=== PATIENT | female | born 1950 | race African-American/Black ===

== ENCOUNTER 2021-06-26 08:00 | Inpatient (IN) ==
[2021-06-26] MEDS ORDERED: GLUCAGON 1 MG VIAL IM PRN (09:26)
[2021-06-26] MEDS ORDERED: DEXTROSE 10% 250 ML BAG IV PRN (11:23)
[2021-06-26] MEDS ORDERED: NITROGLYCERIN SL 0.4 MG TABLET SL PRN (13:25)
[2021-06-26] MEDS ORDERED: CLORAZEPATE 3.75 MG TABLET PO PRN (13:25)
[2021-06-26] MEDS ORDERED: hydrALAZINE 20 MG/1 ML VIAL IV PRN (13:27)
[2021-06-26] MEDS ORDERED: MORPHINE 4 MG/1 ML VIAL IV PRN (14:39)
[2021-06-26] MEDS ORDERED: SODIUM CHLORIDE 0.9% 1,000 ML IV SCH (15:00)
[2021-06-26] MEDS ORDERED: INFLUENZA VIRUS VACCINE 0.5 ML SYRINGE IM ONE (15:51)
[2021-06-26 15:52] LABS: Basophils # 0.1 10*3/uL (0.0-0.2); Basophils % 0.4 % (0.0-0.8); Eosinophils # 0.1 10*3/uL (0.0-0.87); Eosinophils % 0.5 % (0.00-10.9); Hematocrit 40.1 VOL% (35.7-47.0); Hemoglobin 12.5 GM/DL (12.0-16.0); Immature Granulocytes % 0.4 %; Immature Granulocytes Absolute 0.05 #; Lymphocytes # 4.7 10*3/uL (1.4-4.0); Lymphocytes % 42.1 % (21.3-54.2); Mean Corpuscular HGB Conc 31.2 GM/DL (32-36); Mean Corpuscular Volume 84.1 FL (87-102); Mean Platelet Volume 12.1 FL (9.6-12.0); Neutrophils % 52.6 % (38.7-73.9); Platelet Count 220 T/CUMM (130-400); Red Blood Count 4.77 MC/CUMM (3.8-5.5); Red Cell Distribution Width 13.6 % (9.3-17.3); White Blood Count 11.1 T/CUMM (4-12)
[2021-06-26] MEDS ORDERED: LACTATED RINGERS 1,000 ML IV SCH (16:00)
[2021-06-26 16:11] LABS: Alanine Aminotransferase 21 U/L (13-56); Albumin 3.4 G/DL (3.4-5.0); Alkaline Phosphatase 68 U/L (45-117); Aspartate Amino Transferase 14 U/L (0-37); Bilirubin,Total < 0.39 MG/DL (0.20-1.00); Blood Urea Nitrogen 15 MG/DL (7-18); Calcium 9.7 MG/DL (8.5-10.1); Carbon Dioxide 26 MMOL/L (21-32); Estimated Glom Filtration Rate 87 ML/MIN; Glucose 316 MG/DL (74-106); Osmolality,Calculated 280.2 MOS/KG (273-304); Potassium 4.1 MMOL/L (3.5-5.1); Sodium 134 MMOL/L (136-145); Total Protein 7.8 G/DL (6.4-8.2)
[2021-06-26] MEDS: CHLORHEXIDINE 4% SOLN 118 ML BOTTLE TOP SCH ×2 (16:30→21:28)
[2021-06-26 16:39] LABS: ABG Base Excess -0.1 MMOL/L (-2.5-2.5); ABG HCO3 24.3 MMOL/L (20-26); ABG Oxygen Saturation 98.5 % (95-100); ABG PCO2 36.5 MM HG (35-48); ABG PH 7.424 (7.35-7.45)
[2021-06-26] MEDS: INSULIN REGULAR 100 UNIT/ML SUBCUT SCH ×3 (16:55→21:31)
[2021-06-26 17:26] LABS: Eosinophils 3 % (0-10); Lymphocytes 39 % (20-55); Segmented Neutrophils 54 % (50-85); Total Cells Counted 100
[2021-06-26 17:27] LABS: Anisocytosis Slight; Atypical Lymphocytes 1+; Elliptocytes Few; Hypochromia Slight; Microcytosis Slight; Platelet Estimate Normal; Poikilocytosis Few
[2021-06-26 17:28] LABS: Burr Cells Slight
[2021-06-26] MEDS: CHLORHEXIDINE 0.12% ORAL RINSE 60 ML BOTTLE SWISH/SPIT SCH (22:15)
[2021-06-27] MEDS ORDERED: PAPAVERINE 60 MG/2 ML VIAL ONE (04:16)
[2021-06-27] MEDS ORDERED: VANCOMYCIN 500 MG VIAL ONE (04:17)
[2021-06-27] MEDS ORDERED: VANCOMYCIN 1,000 MG VIAL ONE (04:17)
[2021-06-27] MEDS ORDERED: CEFUROXIME INJ 1,500 MG in SODIUM CHLORIDE 0.9% 100 ML IV ONE ×2 (05:00→06:00)
[2021-06-27] MEDS: CHLORHEXIDINE 4% SOLN 118 ML BOTTLE TOP SCH (05:14)
[2021-06-27] MEDS ORDERED: DIAZEPAM 5 MG TABLET PO ONE (05:30)
[2021-06-27] MEDS ORDERED: FAMOTIDINE 20 MG TABLET PO ONE (05:30)
[2021-06-27] MEDS ORDERED: MIDAZOLAM 10 MG/2 ML VIAL ONE ×4 (06:09→09:51)
[2021-06-27] MEDS ORDERED: SUFentanil 250 MCG/5 ML AMP ONE ×2 (06:09→07:52)
[2021-06-27] MEDS ORDERED: AMINOCAPROIC ACID 5,000 MG/20 ML VIAL ONE (06:11)
[2021-06-27] MEDS ORDERED: SODIUM CHLORIDE 0.9% 1,000 ML IV ONE (06:11)
[2021-06-27] MEDS ORDERED: VECURONIUM 10 MG VIAL IV ONE ×3 (06:11→09:35)
[2021-06-27] MEDS ORDERED: CALCIUM CHLORIDE 1,000 MG/10 ML VIAL IV ONE ×2 (06:11→10:48)
[2021-06-27] MEDS ORDERED: HEPARIN/NACL 0.9% 2 UNITS/ML 1,000 UNIT/500 ML BAG IV ONE (06:11)
[2021-06-27] MEDS ORDERED: MINERAL OIL/PETROLATUM OPH OINT 3.5 GM TUBE ONE (06:11)
[2021-06-27] MEDS ORDERED: LIDOCAINE 2% 5 ML VIAL ONE ×2 (06:11→10:33)
[2021-06-27] MEDS ORDERED: SEVOFLURANE 1 UNIT/15 MINUTE INH ONE (06:11)
[2021-06-27] MEDS ORDERED: SODIUM CHLORIDE 0.9% 250 ML IV ONE (06:11)
[2021-06-27] MEDS ORDERED: SODIUM CHLORIDE 0.9% 100 ML IV ONE (06:11)
[2021-06-27] MEDS ORDERED: PHENYLEPHRINE DRIP 20 MG/250 ML PREMIX IV ONE (06:11)
[2021-06-27] MEDS ORDERED: LACTATED RINGERS 1,000 ML IV ONE (06:11)
[2021-06-27] MEDS ORDERED: ePHEDrine 50 MG/ML VIAL ONE (07:28)
[2021-06-27] MEDS ORDERED: PHENYLEPHRINE DRIP 40 MG/250 ML PREMIX IV ONE (07:29)
[2021-06-27 07:33] LABS: ABG Base Excess -2.4 MMOL/L (-2.5-2.5); ABG HCO3 22.4 MMOL/L (20-26); ABG Oxygen Saturation 99.9 % (95-100); ABG PCO2 34.3 MM HG (35-48); ABG PH 7.408 (7.35-7.45); ABG TCO2 19.6 MMOL/L (23-27); Glucose Heart Surgery 262 MG/DL (74-106); Hematocrit Heart Surgery 31.5 PERCENT (37-47); Hemoglobin Heart Surgery 10.2 G/DL (12.0-16.0); Ionized Calcium Arterial 1.15 MMOL/L (1.21-1.46); PCO2 Patient Temp Arterial 34.3 MMHG; PH Patient Temp Arterial 7.408; Patient Temperature 37 CELCIUS; Potassium Heart/CVR 3.4 MMOL/L (3.5-5.1); Sodium Heart/CVR 139 MMOL/L (135-145)
[2021-06-27 07:42] LABS: Bacteria,Urine Occasional /HPF (Few); Calcium Oxalate Crystals,Urine Occasional /HPF (Few); Hyaline Casts,Urine 1 /LPF (0-3); Mucus,Urine Occasional /LPF (Occasional); RBC,Urine 3 /HPF (0-4); Squamous Epithelial Cell,Urine Occasional /HPF (0-10)
[2021-06-27 07:43] LABS: Bilirubin,Urine Negative (Negative); Blood, Urine Trace mg/dL (Negative); Glucose,Urine (UA) 100 mg/dL (Negative); Ketones,Urine Trace mg/dL (Negative); Nitrite,Urine Negative (Negative); Protein,Urine 30 MG/DL; Urine Appearance Clear (Clear); Urine Color Yellow (Yellow); Urine Specific Gravity > 1.030 (1.001-1.035); Urine pH 5.5 (4.5-8.0)
[2021-06-27] MEDS ORDERED: propofoL 200 MG/20 ML VIAL IV ONE (08:27)
[2021-06-27 08:56] LABS: Hematocrit Heart Surgery 21.4 PERCENT (37-47); Hemoglobin Heart Surgery 6.8 G/DL (12.0-16.0); PCO2 Patient Temp Venous 32.5 MM HG; PH Patient Temp Venous 7.471; PO2 Patient Temp Venous 36.4 MM HG; Potassium Heart/CVR 4.3 MMOL/L (3.5-5.1); VBG Base Excess 0.5 MEQ/L (0-4); VBG HCO3 24.7 MEQ/L (24-28); VBG Oxygen Saturation 82.7 %; VBG PCO2 37.5 MMHG (41-51); VBG PH 7.427; VBG PO2 44.8 MMHG (17-40); VBG Total CO2 23.5 MMOL/L
[2021-06-27 09:26] LABS: Hematocrit Heart Surgery 23.9 PERCENT (37-47); Hemoglobin Heart Surgery 7.7 G/DL (12.0-16.0); PCO2 Patient Temp Venous 30.6 MM HG; PH Patient Temp Venous 7.483; PO2 Patient Temp Venous 36.9 MM HG; Potassium Heart/CVR 4.1 MMOL/L (3.5-5.1); VBG Base Excess 0.1 MEQ/L (0-4); VBG HCO3 24.3 MEQ/L (24-28); VBG Oxygen Saturation 80.4 %; VBG PCO2 35.4 MMHG (41-51); VBG PH 7.439; VBG PO2 45.4 MMHG (17-40); VBG Total CO2 22.5 MMOL/L
[2021-06-27] MEDS ORDERED: diphenhydrAMINE 50 MG/1 ML VIAL ONE (09:35)
[2021-06-27] MEDS ORDERED: FAMOTIDINE 20 MG/2 ML VIAL IV ONE (09:39)
[2021-06-27 09:57] LABS: Hematocrit Heart Surgery 26.5 PERCENT (37-47); Hemoglobin Heart Surgery 8.5 G/DL (12.0-16.0); PCO2 Patient Temp Venous 32.1 MM HG; PH Patient Temp Venous 7.469; PO2 Patient Temp Venous 39.1 MM HG; Potassium Heart/CVR 4.4 MMOL/L (3.5-5.1); VBG HCO3 24.1 MEQ/L (24-28); VBG Oxygen Saturation 73.7 %; VBG PCO2 32.1 MMHG (41-51); VBG PH 7.469; VBG PO2 39.1 MMHG (17-40); VBG Total CO2 21.6 MMOL/L
[2021-06-27] MEDS ORDERED: NEOMYCIN/POLYMYXIN IRRIG SOLN 1 ML AMP BLADDERIRR ONE (10:04)
[2021-06-27] MEDS ORDERED: NITROGLYCERIN DRIP 50 MG/250 ML BOTTLE IV ONE (10:25)
[2021-06-27 10:27] LABS: ABG Base Excess -1.7 MMOL/L (-2.5-2.5); ABG PCO2 32.4 MM HG (35-48); ABG PH 7.438 (7.35-7.45); ABG TCO2 20.3 MMOL/L (23-27); Glucose Heart Surgery 361 MG/DL (74-106); Hemoglobin Heart Surgery 8.4 G/DL (12.0-16.0); Ionized Calcium Arterial 1.24 MMOL/L (1.21-1.46); PCO2 Patient Temp Arterial 32.4 MMHG; PH Patient Temp Arterial 7.438; Patient Temperature 37 CELCIUS; Potassium Heart/CVR 3.3 MMOL/L (3.5-5.1); Sodium Heart/CVR 133 MMOL/L (135-145)
[2021-06-27] MEDS ORDERED: ALBUMIN 25% 25 GM/100 ML VIAL IV ONE (10:32)
[2021-06-27] MEDS ORDERED: HEPARIN 10,000 UNIT/10 ML VIAL ONE (10:33)
[2021-06-27] MEDS ORDERED: DEXTROSE 5% KCL 20 MEQ 20 MEQ/1,000 ML BAG IV ONE (10:33)
[2021-06-27] MEDS ORDERED: MANNITOL 100 GM/500 ML BAG IV ONE (10:33)
[2021-06-27] MEDS ORDERED: MAGNESIUM SULFATE 5 GM/10 ML VIAL IV ONE (10:33)
[2021-06-27] MEDS ORDERED: methylPREDNISolone SOD SUC 1,000 MG/8 ML VIAL ONE (10:33)
[2021-06-27] MEDS ORDERED: FUROSEMIDE 20 MG/2 ML VIAL ONE (10:33)
[2021-06-27] MEDS ORDERED: PROTAMINE SULFATE 50 MG/5 ML VIAL IV ONE (10:34)
[2021-06-27] MEDS ORDERED: SODIUM BICARBONATE 50 MEQ/50 ML VIAL IV ONE (10:34)
[2021-06-27] MEDS ORDERED: NITROPRUSSIDE 50 MG/2 ML VIAL ONE (11:13)
[2021-06-27] MEDS: LACTATED RINGERS 1,000 ML IV PRN ×3 (11:15→13:30)
[2021-06-27] MEDS ORDERED: NITROPRUSSIDE 100 MG in DEXTROSE 5% 250 ML IV PRN (11:25)
[2021-06-27] MEDS ORDERED: PHENYLEPHRINE DRIP 40 MG/250 ML PREMIX IV PRN (11:25)
[2021-06-27] MEDS ORDERED: MORPHINE 10 MG/1 ML VIAL IV PRN (11:25)
[2021-06-27] MEDS ORDERED: MIDAZOLAM 10 MG/2 ML VIAL IV PRN (11:25)
[2021-06-27] MEDS ORDERED: ONDANSETRON 4 MG/2 ML VIAL IV PRN (11:25)
[2021-06-27] MEDS ORDERED: INSULIN REGULAR DRIP 100 ML IV SCH (11:25)
[2021-06-27] MEDS ORDERED: MAGNESIUM SULF RIDER 2 GM/50 ML PREMIX IV PRN (11:25)
[2021-06-27] MEDS ORDERED: CALCIUM CHLORIDE 1,000 MG/10 ML SYRINGE IV PRN (11:25)
[2021-06-27] MEDS ORDERED: VECURONIUM 10 MG VIAL IV PRN ×2 (11:25)
[2021-06-27] MEDS ORDERED: SODIUM CHLORIDE 0.45% 1,000 ML IV SCH ×2 (11:25)
[2021-06-27] MEDS ORDERED: LACTATED RINGERS 250 ML IV PRN (11:25)
[2021-06-27] MEDS ORDERED: INSULIN REGULAR 100 UNIT/ML IV ONE (11:25)
[2021-06-27] MEDS ORDERED: MIDAZOLAM 2 MG/2 ML VIAL IV PRN (11:25)
[2021-06-27] MEDS ORDERED: CHLORHEXIDINE 4% SOLN 118 ML BOTTLE TOP PRN (11:25)
[2021-06-27] MEDS ORDERED: INSULIN REGULAR 100 UNIT/ML IV PRN (11:25)
[2021-06-27] MEDS ORDERED: MAGNESIUM SULF RIDER 4 GM/100 ML PREMIX IV PRN (11:25)
[2021-06-27] MEDS ORDERED: DEXTROSE 10% 250 ML BAG IV PRN ×2 (11:25)
[2021-06-27] MEDS ORDERED: ACETAMINOPHEN 650 MG SUPP RECTAL PRN (11:25)
[2021-06-27 11:49] LABS: ABG HCO3 21.9 MMOL/L (20-26); ABG Oxygen Saturation 99.9 % (95-100); ABG PCO2 25.2 MM HG (35-48); ABG PH 7.493 (7.35-7.45); ABG TCO2 17.9 MMOL/L (23-27); Basophils % 0.2 % (0.0-0.8); Eosinophils % 0.2 % (0.00-10.9); Glucose Heart Surgery 271 MG/DL (74-106); Hematocrit 26.8 VOL% (35.7-47.0); Hematocrit Heart Surgery 26.5 PERCENT (37-47); Hemoglobin 8.5 GM/DL (12.0-16.0); Hemoglobin Heart Surgery 8.5 G/DL (12.0-16.0); Immature Granulocytes % 0.8 %; Immature Granulocytes Absolute 0.07 #; Lymphocytes # 2.5 10*3/uL (1.4-4.0); Mean Corpuscular HGB Conc 31.7 GM/DL (32-36); Mean Corpuscular Volume 83.2 FL (87-102); Mean Platelet Volume 12.5 FL (9.6-12.0); Monocytes % 3.9 % (1.7-12.7); Neutrophils % 65.9 % (38.7-73.9); Platelet Count 146 T/CUMM (130-400); Potassium Heart/CVR 3.6 MMOL/L (3.5-5.1); Red Blood Count 3.22 MC/CUMM (3.8-5.5); Red Cell Distribution Width 13.7 % (9.3-17.3); White Blood Count 8.5 T/CUMM (4-12)
[2021-06-27] MEDS: POTASSIUM CHLORIDE RIDER 20 MEQ/100 ML PREMIX IV PRN ×5 (12:02→19:48)
[2021-06-27 12:08] LABS: INR 1.2; PT Patient Result 13.5 SECS (10.5-12.0); Partial Thromboplastin Time 30.2 SECS (23.8-32.1)
[2021-06-27 12:11] LABS: CKMB % 7.5 %
[2021-06-27 12:16] LABS: High Sensitive Troponin I* 5900.8 ng/L (0-54)
[2021-06-27 12:26] LABS: Albumin 2.4 G/DL (3.4-5.0); Bilirubin,Total 0.4 MG/DL (0.20-1.00); Osmolality,Calculated 285.7 MOS/KG (273-304); Potassium 3.7 MMOL/L (3.5-5.1); Total Protein 5.1 G/DL (6.4-8.2)
[2021-06-27 12:54] LABS: ABG Base Excess -2.9 MMOL/L (-2.5-2.5); ABG Oxygen Saturation 99.8 % (95-100); ABG PCO2 27.7 MM HG (35-48); ABG PH 7.465 (7.35-7.45); ABG TCO2 18.1 MMOL/L (23-27); Glucose Heart Surgery 252 MG/DL (74-106); Hematocrit Heart Surgery 30.3 PERCENT (37-47); Hemoglobin Heart Surgery 9.8 G/DL (12.0-16.0); Potassium Heart/CVR 3.9 MMOL/L (3.5-5.1)
[2021-06-27] MEDS: ALBUMIN 5% 12.5 GM/250 ML VIAL IV PRN ×2 (13:11→17:37)
[2021-06-27 13:55] LABS: ABG Base Excess -1.9 MMOL/L (-2.5-2.5); ABG HCO3 22.9 MMOL/L (20-26); ABG Oxygen Saturation 99.7 % (95-100); ABG PCO2 31.4 MM HG (35-48); ABG PH 7.445 (7.35-7.45); ABG TCO2 19.8 MMOL/L (23-27); Glucose Heart Surgery 194 MG/DL (74-106); Hematocrit Heart Surgery 28.2 PERCENT (37-47); Hemoglobin Heart Surgery 9.1 G/DL (12.0-16.0); Potassium Heart/CVR 3.8 MMOL/L (3.5-5.1)
[2021-06-27 15:49] LABS: ABG Base Excess -0.1 MMOL/L (-2.5-2.5); ABG HCO3 22.7 MMOL/L (20-26); ABG Oxygen Saturation 98.7 % (95-100); ABG PCO2 30.4 MM HG (35-48); ABG PH 7.491 (7.35-7.45); ABG PO2 199.2 MM HG (80-95); ABG TCO2 23.6 MMOL/L (23-27); Glucose Heart Surgery 150 MG/DL (74-106); Hemoglobin Heart Surgery 10.3 G/DL (12.0-16.0); Potassium Heart/CVR 3.5 MMOL/L (3.5-5.1)
[2021-06-27] MEDS: CEFUROXIME INJ 1,500 MG in SODIUM CHLORIDE 0.9% 100 ML IV SCH (18:33)
[2021-06-27 18:54] LABS: ABG Base Excess -1.7 MMOL/L (-2.5-2.5); ABG Oxygen Saturation 99.6 % (95-100); ABG PCO2 31.6 MM HG (35-48); ABG PH 7.445 (7.35-7.45); ABG TCO2 19.9 MMOL/L (23-27); Glucose Heart Surgery 157 MG/DL (74-106); Hematocrit Heart Surgery 28.1 PERCENT (37-47); Hemoglobin Heart Surgery 9.1 G/DL (12.0-16.0); Potassium Heart/CVR 3.6 MMOL/L (3.5-5.1)
[2021-06-27 20:26] LABS: CKMB % 5.5 %
[2021-06-27] MEDS: POTASSIUM CHLORIDE RIDER 10 MEQ/100 ML PREMIX IV PRN (20:35)
[2021-06-27] MEDS: CHLORHEXIDINE 0.12% ORAL RINSE 60 ML BOTTLE SWISH/SPIT SCH (20:53)
[2021-06-27 21:04] LABS: High Sensitive Troponin I* 11927.8 ng/L (0-54)
[2021-06-27 21:29] LABS: ABG Base Excess -1.3 MMOL/L (-2.5-2.5); ABG HCO3 23.3 MMOL/L (20-26); ABG Oxygen Saturation 99.4 % (95-100); ABG PCO2 31.8 MM HG (35-48); ABG PH 7.449 (7.35-7.45); ABG TCO2 19.9 MMOL/L (23-27); Glucose Heart Surgery 142 MG/DL (74-106); Hematocrit Heart Surgery 31.2 PERCENT (37-47); Hemoglobin Heart Surgery 10.1 G/DL (12.0-16.0); Potassium Heart/CVR 4.4 MMOL/L (3.5-5.1)
[2021-06-27] MEDS ORDERED: FUROSEMIDE 40 MG/4 ML VIAL IV ONE (22:13)
[2021-06-28] MEDS: POTASSIUM CHLORIDE RIDER 20 MEQ/100 ML PREMIX IV PRN ×2 (00:16→01:55)
[2021-06-28 00:51] LABS: ABG Base Excess -2.3 MMOL/L (-2.5-2.5); ABG HCO3 22.5 MMOL/L (20-26); ABG Oxygen Saturation 99.6 % (95-100); ABG PCO2 31.9 MM HG (35-48); ABG PH 7.431 (7.35-7.45); ABG TCO2 19.2 MMOL/L (23-27); Glucose Heart Surgery 150 MG/DL (74-106); Hemoglobin Heart Surgery 10.3 G/DL (12.0-16.0); Potassium Heart/CVR 4.2 MMOL/L (3.5-5.1)
[2021-06-28 01:44] LABS: ABG Base Excess -2.3 MMOL/L (-2.5-2.5); ABG HCO3 22.5 MMOL/L (20-26); ABG Oxygen Saturation 99.6 % (95-100); ABG PCO2 31.4 MM HG (35-48); ABG PH 7.437 (7.35-7.45); ABG TCO2 19.1 MMOL/L (23-27); Glucose Heart Surgery 152 MG/DL (74-106); Hematocrit Heart Surgery 31.3 PERCENT (37-47); Hemoglobin Heart Surgery 10.1 G/DL (12.0-16.0); Potassium Heart/CVR 3.9 MMOL/L (3.5-5.1)
[2021-06-28] MEDS: POTASSIUM CHLORIDE RIDER 10 MEQ/100 ML PREMIX IV PRN (03:05)
[2021-06-28] MEDS ORDERED: NITROPRUSSIDE 100 MG in DEXTROSE 5% 250 ML IV PRN (03:12)
[2021-06-28 03:27] LABS: ABG Base Excess -2.4 MMOL/L (-2.5-2.5); ABG HCO3 22.5 MMOL/L (20-26); ABG Oxygen Saturation 99.5 % (95-100); ABG PCO2 32.1 MM HG (35-48); ABG PH 7.429 (7.35-7.45); ABG TCO2 19.2 MMOL/L (23-27); Glucose Heart Surgery 145 MG/DL (74-106); Hematocrit Heart Surgery 31.3 PERCENT (37-47); Hemoglobin Heart Surgery 10.1 G/DL (12.0-16.0); Potassium Heart/CVR 4.6 MMOL/L (3.5-5.1)
[2021-06-28 03:30] LABS: Basophils % 0.1 % (0.0-0.8); Hematocrit 30.3 VOL% (35.7-47.0); Hemoglobin 9.9 GM/DL (12.0-16.0); Immature Granulocytes Absolute 0.14 #; Lymphocytes # 2.3 10*3/uL (1.4-4.0); Lymphocytes % 16.8 % (21.3-54.2); Mean Corpuscular HGB Conc 32.7 GM/DL (32-36); Mean Corpuscular Volume 80.8 FL (87-102); Mean Platelet Volume 12.5 FL (9.6-12.0); Monocytes % 4.2 % (1.7-12.7); Neutrophils % 77.9 % (38.7-73.9); Platelet Count 142 T/CUMM (130-400); Red Blood Count 3.75 MC/CUMM (3.8-5.5); Red Cell Distribution Width 15.2 % (9.3-17.3); White Blood Count 13.7 T/CUMM (4-12)
[2021-06-28 03:48] LABS: Albumin 2.9 G/DL (3.4-5.0); Bilirubin,Direct 0.16 MG/DL (0.0-0.20); Bilirubin,Total 0.5 MG/DL (0.20-1.00); Calcium 8.2 MG/DL (8.5-10.1); Osmolality,Calculated 284.3 MOS/KG (273-304); Potassium 4.8 MMOL/L (3.5-5.1); Total Protein 5.6 G/DL (6.4-8.2)
[2021-06-28 03:50] LABS: CKMB % 4.7 %
[2021-06-28] MEDS: CEFUROXIME INJ 1,500 MG in SODIUM CHLORIDE 0.9% 100 ML IV SCH ×2 (06:05→18:14)
[2021-06-28] MEDS: CHLORHEXIDINE 0.12% ORAL RINSE 60 ML BOTTLE SWISH/SPIT SCH ×4 (07:50→21:15)
[2021-06-28] MEDS: INSULIN REGULAR 100 UNIT/ML SUBCUT SCH ×5 (07:50→21:15)
[2021-06-28] MEDS: ASPIRIN EC 81 MG TABLET PO SCH (08:03)
[2021-06-28] MEDS: lisinopriL 10 MG TABLET PO SCH (08:19)
[2021-06-28] MEDS ORDERED: ACETAMINOPHEN 325 MG TABLET PO PRN (08:26)
[2021-06-28] MEDS ORDERED: ONDANSETRON 4 MG/2 ML VIAL IV PRN (08:26)
[2021-06-28] MEDS ORDERED: MAGNESIUM HYDROXIDE SUSP 30 ML UDCUP PO PRN (08:26)
[2021-06-28] MEDS ORDERED: DEXTROSE 10% 250 ML BAG IV PRN (08:26)
[2021-06-28] MEDS ORDERED: ALUMINUM/MAGNES/SIMETH MAX STR 30 ML UDCUP PO PRN (08:26)
[2021-06-28] MEDS ORDERED: oxyCODONE/ACETAMINOPHEN 5-325 MG TABLET PO PRN (08:26)
[2021-06-28] MEDS ORDERED: MAGNESIUM SULF RIDER 4 GM/100 ML PREMIX IV PRN (08:26)
[2021-06-28] MEDS ORDERED: GLUCAGON 1 MG VIAL IM PRN (08:26)
[2021-06-28] MEDS ORDERED: MAGNESIUM SULF RIDER 2 GM/50 ML PREMIX IV PRN (08:26)
[2021-06-28] MEDS ORDERED: KETOROLAC 30 MG/1 ML VIAL IV PRN (08:26)
[2021-06-28] MEDS ORDERED: ZALEPLON 5 MG CAPSULE PO PRN (08:26)
[2021-06-28] MEDS ORDERED: POTASSIUM CHLORIDE 20 MEQ TABLET PO PRN (08:26)
[2021-06-28] MEDS: PANTOPRAZOLE 40 MG TABLET PO SCH (08:45)
[2021-06-28] MEDS: FERROUS SULFATE 325 MG TABLET PO SCH (08:45)
[2021-06-28] MEDS: DOCUSATE SODIUM 100 MG CAPSULE PO SCH (08:45)
[2021-06-28] MEDS: SODIUM CHLOR 0.45% KCL 20 MEQ 20 MEQ/1,000 ML BAG IV SCH (08:46)
[2021-06-28] MEDS: buPROPion SR 150 MG TABLET PO SCH ×2 (08:46→21:15)
[2021-06-28] MEDS ORDERED: amLODIPine 5 MG TABLET PO SCH (09:00)
[2021-06-28] MEDS ORDERED: carvediloL 6.25 MG TABLET PO SCH (09:00)
[2021-06-28] MEDS ORDERED: ROSUVASTATIN 20 MG TABLET PO SCH (09:00)
[2021-06-28] MEDS ORDERED: AMIODARONE INJ 150 MG in DEXTROSE 5% 100 ML IV ONE (09:08)
[2021-06-28] MEDS ORDERED: AMIODARONE INJ 450 MG in DEXTROSE 5% 241 ML IV SCH (09:30)
[2021-06-28] MEDS ORDERED: hydrALAZINE 25 MG TABLET PO ONE (10:18)
[2021-06-28] MEDS ORDERED: hydrALAZINE 20 MG/1 ML VIAL IV ONE (13:30)
[2021-06-28] MEDS ORDERED: amLODIPine 10 MG TABLET PO ONE (13:47)
[2021-06-28] MEDS: hydrALAZINE 25 MG TABLET PO SCH ×2 (14:12→21:15)
[2021-06-28] MEDS: AMIODARONE INJ 450 MG in DEXTROSE 5% 241 ML IV SCH (15:34)
[2021-06-28 15:35] LABS: High Sensitive Troponin I* 9860.3 ng/L (0-54)
[2021-06-28] MEDS: metFORMIN 500 MG TABLET PO SCH (17:19)
[2021-06-28] MEDS: carvediloL 12.5 MG TABLET PO SCH (21:15)
[2021-06-28] MEDS: ROSUVASTATIN 20 MG TABLET PO SCH (21:15)
[2021-06-29] MEDS: INSULIN REGULAR 100 UNIT/ML SUBCUT SCH ×6 (00:10→20:25)
[2021-06-29 05:04] LABS: Albumin 2.8 G/DL (3.4-5.0); Bilirubin,Direct 0.1 MG/DL (0.0-0.20); Bilirubin,Total 0.4 MG/DL (0.20-1.00); Osmolality,Calculated 274.2 MOS/KG (273-304); Potassium 4.1 MMOL/L (3.5-5.1); Total Protein 6.2 G/DL (6.4-8.2)
[2021-06-29 05:10] LABS: Basophils % 0.2 % (0.0-0.8); Hematocrit 33.6 VOL% (35.7-47.0); Hemoglobin 10.9 GM/DL (12.0-16.0); Immature Granulocytes % 1.2 %; Lymphocytes # 2.8 10*3/uL (1.4-4.0); Lymphocytes % 17.2 % (21.3-54.2); Mean Corpuscular HGB Conc 32.4 GM/DL (32-36); Mean Corpuscular Volume 81.6 FL (87-102); Monocytes % 6.9 % (1.7-12.7); Neutrophils % 74.5 % (38.7-73.9); Platelet Count 149 T/CUMM (130-400); Red Blood Count 4.12 MC/CUMM (3.8-5.5); Red Cell Distribution Width 15.9 % (9.3-17.3); White Blood Count 16.2 T/CUMM (4-12)
[2021-06-29 05:34] LABS: Albumin 2.7 G/DL (3.4-5.0); Bilirubin,Direct 0.11 MG/DL (0.0-0.20); Bilirubin,Indirect 0.3 MG/DL (0.0-1.0); Bilirubin,Total 0.4 MG/DL (0.20-1.00); CKMB % 1.9 %; High Sensitive Troponin I* 6831.1 ng/L (0-54); Total Protein 6.3 G/DL (6.4-8.2)
[2021-06-29] MEDS ORDERED: FUROSEMIDE 40 MG/4 ML VIAL IV ONE (06:00)
[2021-06-29] MEDS: ASPIRIN EC 81 MG TABLET PO SCH (08:38)
[2021-06-29] MEDS: PANTOPRAZOLE 40 MG TABLET PO SCH (08:38)
[2021-06-29] MEDS: amLODIPine 5 MG TABLET PO SCH (08:38)
[2021-06-29] MEDS: buPROPion SR 150 MG TABLET PO SCH ×2 (08:38→20:25)
[2021-06-29] MEDS: hydrALAZINE 25 MG TABLET PO SCH (08:38)
[2021-06-29] MEDS: lisinopriL 10 MG TABLET PO SCH (08:39)
[2021-06-29] MEDS: metFORMIN 500 MG TABLET PO SCH ×2 (08:39→16:21)
[2021-06-29] MEDS: carvediloL 12.5 MG TABLET PO SCH ×2 (08:39→20:25)
[2021-06-29] MEDS: DOCUSATE SODIUM 100 MG CAPSULE PO SCH (08:39)
[2021-06-29] MEDS: FERROUS SULFATE 325 MG TABLET PO SCH (08:39)
[2021-06-29] MEDS: AMIODARONE 200 MG TABLET PO SCH ×2 (08:40→20:25)
[2021-06-29] MEDS: CHLORHEXIDINE 0.12% ORAL RINSE 60 ML BOTTLE SWISH/SPIT SCH ×2 (08:44→20:25)
[2021-06-29] MEDS: SODIUM CHLOR 0.45% KCL 20 MEQ 20 MEQ/1,000 ML BAG IV SCH (09:22)
[2021-06-29] MEDS: AMIODARONE INJ 450 MG in DEXTROSE 5% 241 ML IV SCH (09:26)
[2021-06-29] MEDS ORDERED: MAGNESIUM SULF RIDER 4 GM/100 ML PREMIX IV PRN (10:03)
[2021-06-29] MEDS ORDERED: ACETAMINOPHEN 325 MG TABLET PO PRN (10:03)
[2021-06-29] MEDS ORDERED: ZALEPLON 5 MG CAPSULE PO PRN (10:03)
[2021-06-29] MEDS ORDERED: MAGNESIUM HYDROXIDE SUSP 30 ML UDCUP PO PRN (10:03)
[2021-06-29] MEDS ORDERED: POTASSIUM CHLORIDE 20 MEQ TABLET PO PRN (10:03)
[2021-06-29] MEDS ORDERED: GLUCAGON 1 MG VIAL IM PRN ×2 (10:03)
[2021-06-29] MEDS ORDERED: ALUMINUM/MAGNES/SIMETH MAX STR 30 ML UDCUP PO PRN (10:03)
[2021-06-29] MEDS ORDERED: DEXTROSE 50% 25 GM/50 ML VIAL IV PRN (10:03)
[2021-06-29] MEDS ORDERED: oxyCODONE/ACETAMINOPHEN 5-325 MG TABLET PO PRN (10:03)
[2021-06-29] MEDS ORDERED: SODIUM CHLOR 0.45% KCL 20 MEQ 20 MEQ/1,000 ML BAG IV SCH (10:03)
[2021-06-29] MEDS ORDERED: MAGNESIUM SULF RIDER 2 GM/50 ML PREMIX IV PRN (10:03)
[2021-06-29] MEDS ORDERED: DEXTROSE 10% 250 ML BAG IV PRN (10:12)
[2021-06-29] MEDS: ROSUVASTATIN 20 MG TABLET PO SCH (20:25)
[2021-06-30 05:00] LABS: Basophils % 0.1 % (0.0-0.8); Hematocrit 32.5 VOL% (35.7-47.0); Hemoglobin 10.3 GM/DL (12.0-16.0); Immature Granulocytes % 1.3 %; Immature Granulocytes Absolute 0.18 #; Lymphocytes # 2.6 10*3/uL (1.4-4.0); Lymphocytes % 18.5 % (21.3-54.2); Mean Corpuscular HGB Conc 31.7 GM/DL (32-36); Mean Corpuscular Volume 83.5 FL (87-102); Mean Platelet Volume 11.9 FL (9.6-12.0); Monocytes % 7.7 % (1.7-12.7); Neutrophils % 72.4 % (38.7-73.9); Platelet Count 147 T/CUMM (130-400); Red Blood Count 3.89 MC/CUMM (3.8-5.5); Red Cell Distribution Width 15.9 % (9.3-17.3); White Blood Count 14.1 T/CUMM (4-12)
[2021-06-30 05:32] LABS: Alanine Aminotransferase 18 U/L (13-56); Albumin 2.5 G/DL (3.4-5.0); Alkaline Phosphatase 51 U/L (45-117); Aspartate Amino Transferase 26 U/L (0-37); Bilirubin,Indirect 0.4 MG/DL (0.0-1.0); Blood Urea Nitrogen 27 MG/DL (7-18); Calcium 8.7 MG/DL (8.5-10.1); Carbon Dioxide 26 MMOL/L (21-32); Estimated Glom Filtration Rate 104 ML/MIN; Glucose 206 MG/DL (74-106); Osmolality,Calculated 278.2 MOS/KG (273-304); Potassium 4.1 MMOL/L (3.5-5.1); Sodium 134 MMOL/L (136-145); Total Protein 6.2 G/DL (6.4-8.2)
[2021-06-30] MEDS ORDERED: FUROSEMIDE 40 MG/4 ML VIAL IV ONE (06:00)
[2021-06-30] MEDS: amLODIPine 5 MG TABLET PO SCH (08:25)
[2021-06-30] MEDS: carvediloL 12.5 MG TABLET PO SCH ×2 (08:25→21:45)
[2021-06-30] MEDS: metFORMIN 850 MG TABLET PO SCH ×2 (08:25→16:52)
[2021-06-30] MEDS: AMIODARONE 200 MG TABLET PO SCH ×2 (08:25→21:44)
[2021-06-30] MEDS: buPROPion SR 150 MG TABLET PO SCH ×2 (08:25→21:45)
[2021-06-30] MEDS: DOCUSATE SODIUM 100 MG CAPSULE PO SCH (08:26)
[2021-06-30] MEDS: lisinopriL 10 MG TABLET PO SCH (08:26)
[2021-06-30] MEDS: PANTOPRAZOLE 40 MG TABLET PO SCH (08:26)
[2021-06-30] MEDS: FERROUS SULFATE 325 MG TABLET PO SCH (08:26)
[2021-06-30] MEDS: ASPIRIN EC 81 MG TABLET PO SCH (08:26)
[2021-06-30] MEDS: CHLORHEXIDINE 0.12% ORAL RINSE 60 ML BOTTLE SWISH/SPIT SCH ×2 (08:27→21:45)
[2021-06-30] MEDS: INSULIN REGULAR 100 UNIT/ML SUBCUT SCH ×4 (08:27→21:38)
[2021-06-30] MEDS ORDERED: FERROUS SULFATE 325 MG TABLET PO SCH (09:00)
[2021-06-30] MEDS: ROSUVASTATIN 20 MG TABLET PO SCH (21:44)
[2021-07-01 06:14] LABS: Basophils % 0.2 % (0.0-0.8); Eosinophils # 0.1 10*3/uL (0.0-0.87); Eosinophils % 0.4 % (0.00-10.9); Hematocrit 31.5 VOL% (35.7-47.0); Hemoglobin 9.9 GM/DL (12.0-16.0); Immature Granulocytes % 1.2 %; Immature Granulocytes Absolute 0.14 #; Lymphocytes # 3.3 10*3/uL (1.4-4.0); Lymphocytes % 27.7 % (21.3-54.2); Mean Corpuscular HGB Conc 31.4 GM/DL (32-36); Mean Corpuscular Volume 85.1 FL (87-102); Mean Platelet Volume 12.7 FL (9.6-12.0); Neutrophils % 62.5 % (38.7-73.9); Platelet Count 163 T/CUMM (130-400); Red Cell Distribution Width 15.9 % (9.3-17.3)
[2021-07-01 06:42] LABS: Alanine Aminotransferase 17 U/L (13-56); Albumin 2.4 G/DL (3.4-5.0); Alkaline Phosphatase 55 U/L (45-117); Aspartate Amino Transferase 18 U/L (0-37); Bilirubin,Indirect 0.3 MG/DL (0.0-1.0); Blood Urea Nitrogen 27 MG/DL (7-18); Calcium 8.7 MG/DL (8.5-10.1); Carbon Dioxide 28 MMOL/L (21-32); Estimated Glom Filtration Rate 104 ML/MIN; Glucose 179 MG/DL (74-106); Potassium 4.2 MMOL/L (3.5-5.1); Sodium 136 MMOL/L (136-145); Total Protein 5.6 G/DL (6.4-8.2)
[2021-07-01] MEDS ORDERED: MAGNESIUM SULF RIDER 2 GM/50 ML PREMIX IV ONE (07:30)
[2021-07-01] MEDS: ONDANSETRON 4 MG/2 ML VIAL IV PRN (08:25)
[2021-07-01] MEDS: carvediloL 12.5 MG TABLET PO SCH ×2 (10:39→21:29)
[2021-07-01] MEDS: FERROUS SULFATE 325 MG TABLET PO SCH (10:40)
[2021-07-01] MEDS: lisinopriL 10 MG TABLET PO SCH (10:40)
[2021-07-01] MEDS: ASPIRIN EC 81 MG TABLET PO SCH (10:40)
[2021-07-01] MEDS: metFORMIN 850 MG TABLET PO SCH (10:40)
[2021-07-01] MEDS: buPROPion SR 150 MG TABLET PO SCH ×2 (10:40→21:29)
[2021-07-01] MEDS: DOCUSATE SODIUM 100 MG CAPSULE PO SCH (10:40)
[2021-07-01] MEDS: amLODIPine 5 MG TABLET PO SCH (10:40)
[2021-07-01] MEDS: AMIODARONE 200 MG TABLET PO SCH ×2 (10:40→21:29)
[2021-07-01] MEDS: INSULIN REGULAR 100 UNIT/ML SUBCUT SCH ×4 (10:41→21:36)
[2021-07-01] MEDS: PANTOPRAZOLE 40 MG TABLET PO SCH (10:43)
[2021-07-01] MEDS: CHLORHEXIDINE 0.12% ORAL RINSE 60 ML BOTTLE SWISH/SPIT SCH ×2 (10:43→21:36)
[2021-07-01] MEDS: ROSUVASTATIN 20 MG TABLET PO SCH (21:29)
[2021-07-01] MEDS: metFORMIN 500 MG TABLET PO SCH (21:30)
[2021-07-02 05:07] LABS: Basophils % 0.3 % (0.0-0.8); Eosinophils # 0.1 10*3/uL (0.0-0.87); Eosinophils % 0.5 % (0.00-10.9); Hematocrit 30.3 VOL% (35.7-47.0); Hemoglobin 9.5 GM/DL (12.0-16.0); Immature Granulocytes % 1.2 %; Immature Granulocytes Absolute 0.14 #; Lymphocytes # 3.6 10*3/uL (1.4-4.0); Lymphocytes % 32.4 % (21.3-54.2); Mean Corpuscular HGB Conc 31.4 GM/DL (32-36); Mean Corpuscular Volume 85.8 FL (87-102); Mean Platelet Volume 12.3 FL (9.6-12.0); Monocytes % 8.4 % (1.7-12.7); Neutrophils % 57.2 % (38.7-73.9); Platelet Count 184 T/CUMM (130-400); Red Blood Count 3.53 MC/CUMM (3.8-5.5); Red Cell Distribution Width 15.9 % (9.3-17.3); White Blood Count 11.2 T/CUMM (4-12)
[2021-07-02] MEDS: ONDANSETRON 4 MG/2 ML VIAL IV PRN (08:23)
[2021-07-02] MEDS: POLYETHYLENE GLYCOL POWDER 17 GM PACK PO SCH (10:30)
[2021-07-02] MEDS: amLODIPine 5 MG TABLET PO SCH (10:32)
[2021-07-02] MEDS: carvediloL 12.5 MG TABLET PO SCH ×2 (10:32→22:04)
[2021-07-02] MEDS: DOCUSATE SODIUM 100 MG CAPSULE PO SCH (10:33)
[2021-07-02] MEDS: AMIODARONE 200 MG TABLET PO SCH ×2 (10:33→22:04)
[2021-07-02] MEDS: ASPIRIN EC 81 MG TABLET PO SCH (10:33)
[2021-07-02] MEDS: buPROPion SR 150 MG TABLET PO SCH ×2 (10:33→22:04)
[2021-07-02] MEDS: lisinopriL 10 MG TABLET PO SCH (10:33)
[2021-07-02] MEDS: metFORMIN 500 MG TABLET PO SCH ×2 (10:33→22:04)
[2021-07-02] MEDS: CHLORHEXIDINE 0.12% ORAL RINSE 60 ML BOTTLE SWISH/SPIT SCH ×2 (10:34→22:05)
[2021-07-02] MEDS: FERROUS SULFATE 325 MG TABLET PO SCH (10:34)
[2021-07-02] MEDS: PANTOPRAZOLE 40 MG TABLET PO SCH (10:34)
[2021-07-02] MEDS: INSULIN REGULAR 100 UNIT/ML SUBCUT SCH ×4 (10:34→22:07)
[2021-07-02] MEDS ORDERED: MAGNESIUM HYDROXIDE SUSP 30 ML UDCUP PO ONE (16:13)
[2021-07-02] MEDS: ROSUVASTATIN 20 MG TABLET PO SCH (22:04)
[2021-07-03 05:33] LABS: Basophils % 0.2 % (0.0-0.8); Eosinophils # 0.1 10*3/uL (0.0-0.87); Eosinophils % 0.7 % (0.00-10.9); Hematocrit 29.3 VOL% (35.7-47.0); Immature Granulocytes % 1.6 %; Immature Granulocytes Absolute 0.19 #; Lymphocytes # 3.4 10*3/uL (1.4-4.0); Lymphocytes % 28.1 % (21.3-54.2); Mean Corpuscular HGB Conc 30.7 GM/DL (32-36); Mean Corpuscular Volume 86.2 FL (87-102); Mean Platelet Volume 12.4 FL (9.6-12.0); Neutrophils % 62.4 % (38.7-73.9); Platelet Count 190 T/CUMM (130-400); Red Cell Distribution Width 15.7 % (9.3-17.3); White Blood Count 12.1 T/CUMM (4-12)
[2021-07-03 05:45] LABS: Alanine Aminotransferase 16 U/L (13-56); Albumin 2.2 G/DL (3.4-5.0); Alkaline Phosphatase 51 U/L (45-117); Aspartate Amino Transferase 12 U/L (0-37); Bilirubin,Indirect 0.4 MG/DL (0.0-1.0); Blood Urea Nitrogen 23 MG/DL (7-18); Calcium 8.4 MG/DL (8.5-10.1); Carbon Dioxide 27 MMOL/L (21-32); Estimated Glom Filtration Rate 109 ML/MIN; Glucose 183 MG/DL (74-106); Osmolality,Calculated 283.7 MOS/KG (273-304); Potassium 4.3 MMOL/L (3.5-5.1); Sodium 138 MMOL/L (136-145)
[2021-07-03] MEDS: ONDANSETRON 4 MG/2 ML VIAL IV PRN (07:55)
[2021-07-03] MEDS: ASPIRIN EC 81 MG TABLET PO SCH (09:23)
[2021-07-03] MEDS: DOCUSATE SODIUM 100 MG CAPSULE PO SCH ×2 (09:24→21:06)
[2021-07-03] MEDS: AMIODARONE 200 MG TABLET PO SCH ×2 (09:25→21:06)
[2021-07-03] MEDS: carvediloL 12.5 MG TABLET PO SCH ×2 (09:26→21:05)
[2021-07-03] MEDS: FERROUS SULFATE 325 MG TABLET PO SCH (09:27)
[2021-07-03] MEDS: metFORMIN 500 MG TABLET PO SCH ×2 (09:27→21:06)
[2021-07-03] MEDS: POLYETHYLENE GLYCOL POWDER 17 GM PACK PO SCH (09:28)
[2021-07-03] MEDS: amLODIPine 5 MG TABLET PO SCH (09:29)
[2021-07-03] MEDS: CHLORHEXIDINE 0.12% ORAL RINSE 60 ML BOTTLE SWISH/SPIT SCH ×2 (09:30→21:07)
[2021-07-03] MEDS: lisinopriL 10 MG TABLET PO SCH (09:31)
[2021-07-03] MEDS: PANTOPRAZOLE 40 MG TABLET PO SCH (09:31)
[2021-07-03] MEDS: buPROPion SR 150 MG TABLET PO SCH ×2 (09:32→21:06)
[2021-07-03] MEDS ORDERED: FUROSEMIDE 40 MG/4 ML VIAL IV ONE ×2 (09:51→16:00)
[2021-07-03] MEDS: INSULIN REGULAR 100 UNIT/ML SUBCUT SCH ×4 (12:33→22:57)
[2021-07-03] MEDS ORDERED: LACTULOSE 20 GM/30 ML UDCUP PO PRN (13:08)
[2021-07-03] MEDS: INSULIN GLARGINE 100 UNIT/ML SUBCUT SCH (21:05)
[2021-07-03] MEDS: ROSUVASTATIN 20 MG TABLET PO SCH (21:06)
[2021-07-04 04:58] LABS: Basophils % 0.2 % (0.0-0.8); Eosinophils # 0.1 10*3/uL (0.0-0.87); Eosinophils % 0.7 % (0.00-10.9); Hematocrit 30.4 VOL% (35.7-47.0); Hemoglobin 9.4 GM/DL (12.0-16.0); Immature Granulocytes % 1.5 %; Lymphocytes # 3.6 10*3/uL (1.4-4.0); Lymphocytes % 27.7 % (21.3-54.2); Mean Corpuscular HGB Conc 30.9 GM/DL (32-36); Mean Corpuscular Volume 85.4 FL (87-102); Mean Platelet Volume 11.8 FL (9.6-12.0); Monocytes % 7.3 % (1.7-12.7); Neutrophils % 62.6 % (38.7-73.9); Platelet Count 210 T/CUMM (130-400); Red Blood Count 3.56 MC/CUMM (3.8-5.5); Red Cell Distribution Width 15.5 % (9.3-17.3); White Blood Count 13.1 T/CUMM (4-12)
[2021-07-04 05:23] LABS: Alanine Aminotransferase 15 U/L (13-56); Albumin 2.3 G/DL (3.4-5.0); Alkaline Phosphatase 55 U/L (45-117); Aspartate Amino Transferase 10 U/L (0-37); Bilirubin,Indirect 0.4 MG/DL (0.0-1.0); Blood Urea Nitrogen 15 MG/DL (7-18); Calcium 8.7 MG/DL (8.5-10.1); Carbon Dioxide 30 MMOL/L (21-32); Estimated Glom Filtration Rate 104 ML/MIN; Glucose 141 MG/DL (74-106); Osmolality,Calculated 272.1 MOS/KG (273-304); Potassium 3.8 MMOL/L (3.5-5.1); Sodium 135 MMOL/L (136-145); Total Protein 6.2 G/DL (6.4-8.2)
[2021-07-04] MEDS ORDERED: LACTULOSE 20 GM/30 ML UDCUP PO ONE (09:00)
[2021-07-04] MEDS: INSULIN REGULAR 100 UNIT/ML SUBCUT SCH ×4 (09:51→21:21)
[2021-07-04] MEDS: ASPIRIN EC 81 MG TABLET PO SCH (09:55)
[2021-07-04] MEDS: DOCUSATE SODIUM 100 MG CAPSULE PO SCH ×2 (09:57→21:20)
[2021-07-04] MEDS: AMIODARONE 200 MG TABLET PO SCH ×2 (09:57→21:20)
[2021-07-04] MEDS: carvediloL 12.5 MG TABLET PO SCH ×2 (09:57→21:20)
[2021-07-04] MEDS: metFORMIN 500 MG TABLET PO SCH ×2 (09:58→21:20)
[2021-07-04] MEDS: FERROUS SULFATE 325 MG TABLET PO SCH (09:58)
[2021-07-04] MEDS: buPROPion SR 150 MG TABLET PO SCH ×2 (09:59→21:20)
[2021-07-04] MEDS: PANTOPRAZOLE 40 MG TABLET PO SCH (09:59)
[2021-07-04] MEDS: amLODIPine 5 MG TABLET PO SCH (09:59)
[2021-07-04] MEDS: lisinopriL 10 MG TABLET PO SCH (09:59)
[2021-07-04] MEDS: CHLORHEXIDINE 0.12% ORAL RINSE 60 ML BOTTLE SWISH/SPIT SCH ×2 (09:59→21:22)
[2021-07-04] MEDS: POLYETHYLENE GLYCOL POWDER 17 GM PACK PO SCH (10:00)
[2021-07-04] MEDS: ROSUVASTATIN 20 MG TABLET PO SCH (21:20)
[2021-07-04] MEDS: INSULIN GLARGINE 100 UNIT/ML SUBCUT SCH (21:20)
[2021-07-05] MEDS: PANTOPRAZOLE 40 MG TABLET PO SCH (10:48)
[2021-07-05] MEDS: amLODIPine 5 MG TABLET PO SCH (10:48)
[2021-07-05] MEDS: carvediloL 12.5 MG TABLET PO SCH ×2 (10:48→21:33)
[2021-07-05] MEDS: DOCUSATE SODIUM 100 MG CAPSULE PO SCH ×2 (10:48→21:34)
[2021-07-05] MEDS: FERROUS SULFATE 325 MG TABLET PO SCH (10:48)
[2021-07-05] MEDS: lisinopriL 10 MG TABLET PO SCH (10:48)
[2021-07-05] MEDS: buPROPion SR 150 MG TABLET PO SCH ×2 (10:49→21:32)
[2021-07-05] MEDS: ASPIRIN EC 81 MG TABLET PO SCH (10:49)
[2021-07-05] MEDS: AMIODARONE 200 MG TABLET PO SCH ×2 (10:49→21:33)
[2021-07-05] MEDS: metFORMIN 500 MG TABLET PO SCH ×2 (10:49→21:37)
[2021-07-05] MEDS: CHLORHEXIDINE 0.12% ORAL RINSE 60 ML BOTTLE SWISH/SPIT SCH ×2 (10:50→21:36)
[2021-07-05] MEDS: INSULIN REGULAR 100 UNIT/ML SUBCUT SCH ×4 (10:50→21:37)
[2021-07-05] MEDS: POLYETHYLENE GLYCOL POWDER 17 GM PACK PO SCH (11:31)
[2021-07-05] MEDS: ROSUVASTATIN 20 MG TABLET PO SCH (21:33)
[2021-07-05] MEDS: INSULIN GLARGINE 100 UNIT/ML SUBCUT SCH (21:38)
[2021-07-06 09:37] VITALS: BP 98/50
[2021-07-06] MEDS: INSULIN REGULAR 100 UNIT/ML SUBCUT SCH (10:59)
[2021-07-06] MEDS: POLYETHYLENE GLYCOL POWDER 17 GM PACK PO SCH (11:00)
[2021-07-06] MEDS: DOCUSATE SODIUM 100 MG CAPSULE PO SCH (11:01)
[2021-07-06] MEDS: ASPIRIN EC 81 MG TABLET PO SCH (11:01)
[2021-07-06] MEDS: AMIODARONE 200 MG TABLET PO SCH (11:01)
[2021-07-06] MEDS: lisinopriL 10 MG TABLET PO SCH (11:01)
[2021-07-06] MEDS: FERROUS SULFATE 325 MG TABLET PO SCH (11:01)
[2021-07-06] MEDS: buPROPion SR 150 MG TABLET PO SCH (11:01)
[2021-07-06] MEDS: CHLORHEXIDINE 0.12% ORAL RINSE 60 ML BOTTLE SWISH/SPIT SCH (11:02)
[2021-07-06] MEDS: amLODIPine 5 MG TABLET PO SCH (11:02)
[2021-07-06] MEDS: PANTOPRAZOLE 40 MG TABLET PO SCH (11:02)
[2021-07-06] MEDS: metFORMIN 500 MG TABLET PO SCH (11:02)
[2021-07-06] MEDS: carvediloL 12.5 MG TABLET PO SCH (11:02)
== END 2021-07-06 13:03 | disposition home health service (06) | DRG 236 ==
LOC: N.3E 14:34 → N.CVR 06-27 10:51 → N.ICU 06-28 17:20 → N.TELES 07-01 07:45